=== PATIENT | male | born 1970 | race Two or more races ===

== ENCOUNTER 2020-11-06 23:31 | Inpatient (IN) | payer OTHER ==
[~2020-11-06] VITALS: Ht 172.7 cm; Wt 95.3 kg
[2020-11-06] MEDS ORDERED: levETIRAcetam IV 1,000 MG in IV DEXTROSE 5% 100 ML IV ONE (23:45)
--- NOTE | 2020-11-06 23:45 | NUR ---
MD Musa in room to do MSE.
--- NOTE | 2020-11-06 23:50 | NUR ---
Seizure precautions placed for patient with seizure pads alongside bed with bed rails up.
[2020-11-06] MEDS ORDERED: OXCA300T15 PO (23:54)
[2020-11-06] MEDS ORDERED: LEVE500T20 PO (23:54)
[2020-11-07] LABS: HEMATOCRIT 39.9 % (36.7-47.1); MEAN CORPUSCULAR HEMOGLOBIN 32.4 uug (23.8-33.4); MEAN CORPUSCULAR VOLUME 94.9 fL (73.0-96.2); PLATELET COUNT (AUTO) 222 K/uL (152-348)
[2020-11-07] MEDS ORDERED: levETIRAcetam 500 MG/5 ML VIAL IV ONE (00:03)
[2020-11-07 00:05] LABS: CARBON DIOXIDE 28 mmol/L (21-32); CHLORIDE 105 mmol/L (98-107); CREATININE 0.9 mg/dL (0.6-1.3); ETHANOL < 3 MG/DL (0-0); GLUCOSE 87 mg/dL (74-106); POTASSIUM 3.3 mmol/L (3.5-5.1); UREA NITROGEN, BLOOD 11 mg/dL (7-18)
--- NOTE | 2020-11-07 00:07 | NUR ---
cardiovascular surgical tech took patient to get CT scan.
[2020-11-07 00:10] LABS: ALANINE AMINOTRANSFERASE 62 U/L (16-63); ALKALINE PHOSPHATASE 101 U/L (50-136); ASPARTATE AMINOTRANSFERASE 37 U/L (15-37); BILIRUBIN,DIRECT 0.1 mg/dL (0.0-0.2); BILIRUBIN,TOTAL 0.5 mg/dL (0.2-1.0); TOTAL PROTEIN, SERUM 7.9 g/dL (6.4-8.2)
--- NOTE | 2020-11-07 00:20 | NUR ---
Patient returned from CT Scan.
[2020-11-07 00:28] LABS: *AMPHETAMINE, URINE NEGATIVE (NEGATIVE); *CANNABINOID, URINE NEGATIVE (NEGATIVE); *COCCAINE, URINE NEGATIVE (NEGATIVE); *OPIATE, URINE NEGATIVE (NEGATIVE); *PHENCYCLIDINE SCREEN,URINE NEGATIVE (NEGATIVE)
--- NOTE | 2020-11-07 00:31 | NUR ---
Patient actively having a seizure, MD Musa notified. Verbal orders for 2mg Ativan given, administered via IVP 20g R forearm. Seizure lasted for approximately 30 seconds.
[2020-11-07] MEDS ORDERED: LORAZEPAM 2 MG/1 ML VIAL ONE (00:40)
[2020-11-07] MEDS ORDERED: LORAZEPAM 2 MG/1 ML VIAL IV ONE (00:45)
--- NOTE | 2020-11-07 00:56 | NUR ---
Dr. Musa on panel call with Marietta Haro SERVICE PORTER. [facility], diagnosis: seizure.
[2020-11-07] MEDS ORDERED: ONDANSETRON 4 MG/2 ML VIAL IV PRN (01:00)
[2020-11-07] MEDS ORDERED: LORAZEPAM 2 MG/1 ML VIAL IV PRN (01:00)
[2020-11-07] MEDS ORDERED: ACETAMINOPHEN 325 MG TABLET PO PRN (01:00)
[2020-11-07] MEDS: MAGNESIUM SULFATE/D5W 100 ML IV SCH ×2 (01:05→02:12)
[2020-11-07] MEDS: POTASSIUM CHLORIDE 50 ML IV SCH ×3 (01:05→03:30)
--- NOTE | 2020-11-07 01:20 | NUR ---
Patient desated, MD Musa notifed. Patient repositioned to sit upright, suctioned, and sating 100% room air.
--- NOTE | 2020-11-07 01:27 | NUR ---
fish technologistilya Leggett called to inform that COVID is negative.
--- NOTE | 2020-11-07 01:35 | NUR ---
Report given to ONEYDA Nguyen.
--- NOTE | 2020-11-07 02:30 | NUR ---
Pt. admitted to [facility], under care of PV DESIGN ENGINEER Marietta Haro. Belongs List completed
[2020-11-07 03:00] VITALS: BP 95/55
--- NOTE | 2020-11-07 03:01 | NUR ---
Admitted a 50 yr old male to tele unit from ER via gurney accompanied by Er nurse.Patient confused ,slovak speaking in RA, saturating well. Oriented patient to unit, use of call light and TV.Seizure precaution implemented.Iv on Rt forearm 20g patent and intact. No s/s of infiltration.Infused 3 dose of KCL 10 meq tolerated well. Safety measures in place. Will continue to monitor.
[2020-11-07] MEDS: IV D5 1/2 NS 1000 ML 1,000 ML IV PRN ×2 (03:57→15:52)
--- NOTE | 2020-11-07 07:00 | NUR ---
RECEIVED PT AWAKE, ALERT AND ORIENTEDX2. PT IN NO ACUTE DISTRESS. IV INTACT. PT ON ROOM AIR. PT ON SINUS RHYTHM. SAFETY AND COMFORT PROVIDED. WILL CONTINUE TO MONITOR.
[2020-11-07] MEDS: OXCARBAZEPINE 300 MG TABLET PO SCH ×3 (08:11→20:31)
[2020-11-07] MEDS: levETIRAcetam 500 MG TABLET PO SCH ×2 (08:14→09:00)
[2020-11-07 11:55] VITALS: BP 105/62
[2020-11-07] MEDS ORDERED: LAMO25TA10 PO (11:57)
--- NOTE | 2020-11-07 12:09 | NUR ---
KEPPRA 1000MG BID IV ORDERED BY DR. SANTOS INSTEAD OF KEPPRA PO. PT CONFUSED AND NOT FOLLOW COMMAND. PT STABLE. WELL CONTINUE TO MONITOR.
[2020-11-07] MEDS: levETIRAcetam IV 1,000 MG in IV DEXTROSE 5% 100 ML IV SCH ×2 (12:37→20:30)
--- NOTE | 2020-11-07 15:06 | NUR ---
SWALLOW EVALUATION ORDEREDBY DR. SANTOS FOR ASPIRATION PRECAUTION.
[2020-11-07 15:55] VITALS: BP 105/58
--- NOTE | 2020-11-07 19:02 | NUR ---
PT IN NO ACUTE DISTRESS. IV INTACT. PT ON SINUS RHYTHM. SAFETY AND COMFORT PROVIDED. WILL ENDORSE TO INCOMING NURSE FOR CONTINUITY OF CARE.
[2020-11-07 20:00] VITALS: BP 108/64
[2020-11-08] VITALS: BP 133/79
--- NOTE | 2020-11-08 03:48 | NUR ---
pt resting; seizure free; pt is alert and is able to make needs known; bedside swallow passed; able to take meds crushed with pureed; continue to monitor; continue plan of care
[2020-11-08] MEDS: IV D5 1/2 NS 1000 ML 1,000 ML IV PRN (03:55)
[2020-11-08 04:00] VITALS: BP 101/57
[2020-11-08 06:51] LABS: HEMATOCRIT 38.3 % (36.7-47.1); MEAN CORPUSCULAR HEMOGLOBIN 32.8 uug (23.8-33.4); MEAN CORPUSCULAR VOLUME 94.9 fL (73.0-96.2); PLATELET COUNT (AUTO) 204 K/uL (152-348)
[2020-11-08 07:05] LABS: CREATININE 0.7 mg/dL (0.6-1.3); MAGNESIUM 2.2 mg/dL (1.8-2.4); PHOSPHOROUS 3.3 mg/dL (2.5-4.9); POTASSIUM 3.6 mmol/L (3.5-5.1)
--- NOTE | 2020-11-08 07:45 | NUR ---
PATIENT AWAKE ALERT AND RESPONDING WELL, ABLE TO FOLLOW COMMAND. SWALLOW PILLS WELL WITH NO SIGNS OF CHOKING. SR ON MONITOR
[2020-11-08] MEDS: OXCARBAZEPINE 300 MG TABLET PO SCH (08:33)
[2020-11-08] MEDS ORDERED: levETIRAcetam IV 1,500 MG in IV DEXTROSE 5% 100 ML IV SCH (09:00)
[2020-11-08 11:33] VITALS: BP 115/69
--- NOTE | 2020-11-08 11:58 | NUR ---
NO SS OF SEIZURE OR ACUTE CHANGE FROM AM ASSESSMENT
--- NOTE | 2020-11-08 15:00 | NUR ---
dr aguilar in with discharge order home, medication and follow-up instruction given.
[2020-11-08 15:23] VITALS: BP 103/58
--- NOTE | 2020-11-08 18:04 | NUR ---
case picker spoke with mom, patient will be discharge home via ambulance at 2000
--- NOTE | 2020-11-08 19:47 | NUR ---
Patient picked up by [facility] via gurney in stable condition.Report given and all belongings taken by patients. Iv Dc'd .VSS
== END 2020-11-08 19:47 | disposition home or self-care (01) | DRG 53 ==
LOC: ER 23:40 → TELE3 11-07 02:13
PROVIDERS: ADMIT Internal Medicine; ATTEND Nurse Practitioner Acute Care
DX: G40.909 Epilepsy, unspecified, not intractable, without status epilepticus (principal); M62.82 Rhabdomyolysis; E87.6 Hypokalemia; E66.9 Obesity, unspecified; Z20.822 Contact with and (suspected) exposure to COVID-19; Z68.31 Body mass index [BMI] 31.0-31.9, adult; Y24.8XXS Other firearm discharge, undetermined intent, sequela
CPT/HCPCS: 36415; 70450; 83605; 83735; 84100; 85025; 93005; G0378; G0480; J1953; J2060; J3475; J3480; J3490; J7060